=== PATIENT | male | born 1995 | race Caucasian/White ===

== ENCOUNTER 2017-09-13 17:34 | Emergency (ER) | payer MEDICAID ==
[2017-09-13] MEDS ORDERED: NS 1,000 ML IV ONE ×2 (17:47→19:07)
[2017-09-13] MEDS ORDERED: IBUPROFEN 600 MG TAB PO ONE (17:48)
[2017-09-13] MEDS ORDERED: ACETAMINOPHEN 500 MG TAB PO ONE (17:48)
--- NOTE | 2017-09-13 17:50 | EDPHY ---
H & P Time Seen by Provider: 09/13/17 17:44 HPI/ROS: CHIEF COMPLAINT: Sore throat fever HISTORY OF PRESENT ILLNESS: The patient is a 22-year-old man who comes to the emergency department complaining of a sore throat for 3 days. He also has a fever. No nausea vomiting. No headache. No neck pain. No significant medical history. REVIEW OF SYSTEMS: Constitutional: See HPI EENTM: See HPI denies: blurred vision, double vision, nose congestion Respiratory: denies: cough, shortness of breath Cardiac: denies: chest pain, irregular heart rate, lightheadedness, palpitations Gastrointestinal/Abdominal: denies: abdominal pain, diarrhea, nausea, vomiting, blood streaked stools Genitourinary: denies: dysuria, frequency, hematuria, pain Musculoskeletal: denies: joint pain, muscle pain Skin: denies: lesions, rash, jaundice, bruising Neurological: denies: headache, numbness, paresthesia, tingling, dizziness, weakness Hematologic/Lymphatic: denies: blood clots, easy bleeding, easy bruising Immunologic/allergic: denies: HIV/AIDS, transplant EXAM: GENERAL: Well-appearing, well-nourished and in no acute distress. HEAD: Atraumatic, normocephalic. EYES: Pupils equal round and reactive to light, extraocular movements intact, sclera anicteric, conjunctiva are normal. ENT: TMs normal, nares patent, oropharynx erythematous and enlarged tonsils with exudate. Moist mucous membranes. NECK: Normal range of motion, supple without lymphadenopathy or JVD. LUNGS: Breath sounds clear to auscultation bilaterally and equal. No wheezes rales or rhonchi. HEART: Regular rate and rhythm without murmurs, rubs or gallops. ABDOMEN: Soft, slightly enlarged spleen with mild tenderness , normoactive bowel sounds. No guarding, no rebound. BACK: No CVA tenderness, no spinal tenderness, step-offs or deformities EXTREMITIES: Normal range of motion, no pitting or edema. No clubbing or cyanosis. NEUROLOGICAL: Cranial nerves II through XII grossly intact. Normal speech, normal gait. 5/5 strength, normal movement in all extremities, normal sensation PSYCH: Normal mood, normal affect. SKIN: Warm, dry, normal turgor, no visible rashes or lesions. Source: Patient Exam Limitations: No limitations - Medical/Surgical History Hx Asthma: No Hx Chronic Respiratory Disease: No Hx Diabetes: No Hx Cardiac Disease: No Hx Renal Disease: No Hx Cirrhosis: No - Family History Significant Family History: No pertinent family hx - Social History Smoking Status: Never smoked Alcohol Use: Sober Drug Use: None Constitutional: Initial Vital Signs Temperature (C) 39.6 C H 09/13/17 17:43 Heart Rate 122 H 09/13/17 17:43 Respiratory Rate 20 09/13/17 17:43 Blood Pressure 134/76 H 09/13/17 17:43 O2 Sat (%) 95 09/13/17 17:43 O2 Delivery Mode Room Air Allergies/Adverse Reactions: No Known Allergies Allergy (Unverified 09/13/17 17:43) Home Medications: Medication Instructions Recorded Azithromycin [Zithromax] 250 mg PO DAILY #6 tab 09/13/17 Medical Decision Making ED Course/Re-evaluation: 6:43 p.m. the patient is doing well. He is being hydrated. [place] test is negative. Rapid strep is negative. I will start him on azithromycin. Is 7:00 p.m. the patient is feeling better. I will give him Decadron for pain. His heart rate is normalized. He and his mom are eager to go home. He has received IV fluids. We discussed hydration and continued care. We discussed follow-up. Differential Diagnosis: Partial list of the Differential diagnosis considered include but were not limited to; strep throat, mononucleosis, sepsis and although unlikely based on the history and physical exam, I also considered meningitis, gastroenteritis, appendicitis. I discussed these differential diagnoses and the plan with the patient as well as the usual and expected course. The patient understands that the diagnosis is provisional and that in medicine we are not always correct and that further workup is often warranted. Usual and customary warnings were given. All of the patient's questions were answered. The patient was instructed to return to the emergency department should the symptoms at all worsen or return, otherwise to followup with the physician as we discussed. - Data Points Laboratory Results: 09/13/17 09/13/17 09/13/17 Unknown 17:54 17:54 Monoscreen NEGATIVE (NEGATIVE) Group A Strep Screen NEGATIVE (NEGATIVE) Group A Strep DNA Pending Medications Given: Discontinued Medications Acetaminophen (Tylenol) 1,000 mg PO EDNOW ONE Stop: 09/13/17 17:49 Last Admin: 09/13/17 17:55 Dose: 1,000 mg Azithromycin (Zithromax) 500 mg PO EDNOW ONE PRN Reason: Protocol Stop: 09/13/17 18:31 Last Admin: 09/13/17 18:33 Dose: 500 mg Dexamethasone (Decadron) 10 mg PO EDNOW ONE Stop: 09/13/17 18:57 Last Admin: 09/13/17 19:02 Dose: 10 mg Sodium Chloride (Ns) 1,000 mls @ 0 mls/hr IV ONCE ONE; Wide Open PRN Reason: Protocol Stop: 09/13/17 17:48 Last Admin: 09/13/17 17:56 Dose: 1,000 mls Sodium Chloride (Ns) 1,000 mls @ 0 mls/hr IV ONCE ONE; Wide Open PRN Reason: Protocol Stop: 09/13/17 19:08 Last Admin: 09/13/17 19:18 Dose: 1,000 mls Ibuprofen (Motrin) 600 mg PO EDNOW ONE Stop: 09/13/17 17:49 Last Admin: 09/13/17 17:55 Dose: 600 mg Departure - Departure Disposition: Home, Routine, Self-Care Clinical Impression: Acute pharyngitis Qualifiers: Pharyngitis/tonsillitis etiology: unspecified etiology Qualified Code(s): J02.9 - Acute pharyngitis, unspecified Condition: Fair Instructions: Pharyngitis (ED) Referrals: Ofe KAPOOR [Primary Care Provider] - As per Instructions Prescriptions: Azithromycin [Zithromax] 250 mg PO DAILY #6 tab
[2017-09-13 17:52] VITALS: RESP 20
[2017-09-13] MEDS ORDERED: AZITHROMYCIN 250 MG TAB PO ONE (18:30)
[2017-09-13] MEDS ORDERED: DEXAMETHASONE 4 MG TAB PO ONE (18:56)
[2017-09-13 19:24] VITALS: BP 132/76; PULSE 106; TEMP 100.8; O2SAT 95
== END 2017-09-13 19:23 | disposition home or self-care (01) ==
LOC: CED 17:34
DX: J02.9 Acute pharyngitis, unspecified (principal); E86.9 Volume depletion, unspecified
CPT/HCPCS: 86308-PO; 87880-PO